=== PATIENT | male | born 1990 | race Two or more races ===

== ENCOUNTER 2025-02-10 21:09 | Emergency (ER) | payer OTHER ==
[~2025-02-10] VITALS: Ht 167.6 cm; Wt 81.6 kg
[2025-02-10 21:17] VITALS: TEMP 98.5
[2025-02-10] MEDS ORDERED: CEPH-570 PO (21:59)
[2025-02-10] MEDS ORDERED: CEPHALEXIN MONOHYDRATE 500 MG CAPSULE PO ONE (22:07)
[2025-02-10] MEDS: CEPHALEXIN MONOHYDRATE 500 MG CAPSULE PO ONE (22:10)
[2025-02-10 22:11] VITALS: BP 129/66; O2SAT 99
== END 2025-02-10 22:12 ==
LOC: ER 21:14
DX: S61.212D Laceration without foreign body of right middle finger without damage to nail, subsequent encounter (principal); Z48.00 Encounter for change or removal of nonsurgical wound dressing; Z89.612 Acquired absence of left leg above knee; X58.XXXD Exposure to other specified factors, subsequent encounter